=== PATIENT | female | born 1935 | race Caucasian/White ===

== ENCOUNTER → 2016-09-19 | Outpatient (CLI) | payer MEDICARE | END | disposition home or self-care (01) | LOC: WOUND 13:31 | PROVIDERS: ATTEND Podiatrist Foot & Ankle Surgery | DX: L89.892 Pressure ulcer of other site, stage 2 (principal); M21.531 Acquired clawfoot, right foot; M20.41 Other hammer toe(s) (acquired), right foot; Z72.89 Other problems related to lifestyle | CPT/HCPCS: 97597; G0463; WOU0463 ==

== ENCOUNTER → 2016-09-26 | Outpatient (CLI) | payer MEDICARE | END | disposition home or self-care (01) | LOC: WOUND 14:25 | PROVIDERS: ATTEND Podiatrist Foot & Ankle Surgery | DX: L89.892 Pressure ulcer of other site, stage 2 (principal); M21.531 Acquired clawfoot, right foot; M20.41 Other hammer toe(s) (acquired), right foot; Z72.89 Other problems related to lifestyle | CPT/HCPCS: 97597; G0463; WOU0463 ==